=== PATIENT | female | born 1970 | race Caucasian/White ===

== ENCOUNTER → 2024-07-27 10:14 | Outpatient (REF) | payer OTHER, SELFPAY | LOC: HWRAD 10:14 | PROVIDERS: ATTENDING PHYSICIAN Nurse Practitioner Family; REFERRING PHYSICIAN Student in an Organized Health Care Education/Training Program | DX: N93.9 Abnormal uterine and vaginal bleeding, unspecified (principal) | CPT/HCPCS: 76830; 76856 ==

== ENCOUNTER → 2024-07-31 12:38 | Outpatient (REF) | payer OTHER, SELFPAY | LOC: HWWDC 12:38 | PROVIDERS: ATTENDING PHYSICIAN Nurse Practitioner Family; FAMILY PHYSICIAN Physician Assistant Medical | DX: Z12.31 Encounter for screening mammogram for malignant neoplasm of breast (principal) | CPT/HCPCS: 77063; 77067 ==

== ENCOUNTER 2024-11-06 06:20 | Day surgery (SDC) | payer OTHER, SELFPAY ==
[2024-10-19 08:58] LABS: % Basophils 0.8 % (0-2); % Eosinophils 2.2 % (0-6); % Immature Granulocytes 0.2 % (0-0.5); % Lymphocytes 32.1 % (20.5-51.1); % Monocytes 6.8 % (1.7-9.3); % Neutrophils 57.9 % (42.2-75.2); Absolute Basophils 0.1 10^3/uL (0-0.2); Absolute Eosinophils 0.1 10^3/uL (0-0.7); Absolute Lymphocytes 1.9 10^3/uL (1.2-3.4); Absolute Monocytes 0.4 10^3/uL (0.1-0.6); Absolute Neutrophils 3.4 10^3/uL (1.4-6.5); Hematocrit 32.8 % (37.0-47.0); Hemoglobin 10.4 g/dL (12.0-16.0); Mean Corp Hgb Conc. 31.7 g/dL (33.0-37.0); Mean Corpuscular Hgb 26.5 pg (27.0-31.0); Mean Corpuscular Volume 83.7 fL (81.0-99.0); Mean Platelet Volume 12.4 fL (7.4-10.4); Nucleated Red Blood Cells % 0 %; Platelet Count 268 10^3/uL (130-400); Red Blood Cell Count 3.92 10^6/uL (4.20-5.40); Red Cell Dist. Width 16.7 % (11.5-14.5); White Blood Cell Count 5.9 10^3/uL (4.8-10.8)
[2024-10-19 09:38] LABS: Blood Urea Nitrogen 19 mg/dl (7-17); Calcium 9.3 mg/dl (8.4-10.2); Carbon Dioxide 26 mmol/L (22-30); Chloride 106 mmol/L (98-107); Glucose 90 mg/dl (70-99); Potassium 4.7 mmol/L (3.5-5.1); Sodium 140 mmol/L (135-145); eGFR > 60.00
[2024-10-19 09:48] LABS: Beta HCG Quantitative < 2.39 mIU/ml
[2024-10-19 13:06] VITALS: BMI 34.5
[2024-11-06] VITALS (7 sets, daily range): BP systolic 97–122; BP diastolic 57–72; BMI 34.5
[2024-11-06] MEDS: TYLENOL 1000 MG PO (08:23)
[2024-11-06] MEDS: NEURONTIN 300 MG PO (08:23)
[2024-11-06] MEDS: NORMOSOL-R/PLASMALYTE-A 1000 IV (08:24)
--- NOTE | 2024-11-06 11:04 | W.IMMPOSTOP ---
Surgical Immed Post Op Note
-
Primary Surgeon: Luz Elena Denise DO
Assisting Surgeon:n/a
Pre-op Diagnosis: Atypical glandular cells on pap; suggestion endometrial polyp on endometrial biopsy in office
Post-op Diagnosis: same; no definite polyp seen
Procedure Performed: Hysteroscopy D&C
Anesthesia Type: general LMA Dr. Schofield
Specimen / Cultures: 1. endocervical curettings 2. endometrial curettings
Estimated Blood Loss: 5ml
Fluid deficit:
Complications: none
Operative Findings: Uterus normal appearance, no definite polyp seen. No lesions. Tubal ostia seen bilaterally.
No evidence of abnormality in endocervical or endometrial cavity.
Counts correct times 2. 100ml NSS
== END 2024-11-06 13:04 | disposition home or self-care (01) ==
LOC: SDS 06:20
PROVIDERS: ATTENDING PHYSICIAN Obstetrics & Gynecology; FAMILY PHYSICIAN Physician Assistant Medical
DX: N85.8 Other specified noninflammatory disorders of uterus (principal); R87.619 Unspecified abnormal cytological findings in specimens from cervix uteri
CPT/HCPCS: 58558; 88305; 80048; 84702; 85025; 86850; 86900; 86901

== ENCOUNTER → 2025-03-11 09:41 | Outpatient (REF) | payer OTHER, SELFPAY | LOC: MRI 3T 09:41 | PROVIDERS: ATTENDING PHYSICIAN Physician Assistant Surgical; FAMILY PHYSICIAN Student in an Organized Health Care Education/Training Program | DX: M25.562 Pain in left knee (principal) | CPT/HCPCS: 73721 ==